=== PATIENT | male | born 1985 | race Caucasian/White ===

== ENCOUNTER 2020-12-16 16:19 | Emergency (ER) | payer OTHER, SELFPAY ==
[2020-12-16 16:27] VITALS: BP 125/113; PULSE 52; RESP 16; TEMP 37.1; O2SAT 98
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
[2020-12-16 16:42] VITALS: BP 150/90; PULSE 59; O2SAT 97
[2020-12-16 16:43] VITALS: O2SAT 98
[2020-12-16 16:46] VITALS: BP 139/84; PULSE 61; O2SAT 98
[2020-12-16 16:50] VITALS: O2SAT 99
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
--- NOTE | 2020-12-16 17:30 | DI.VRAD_ITS ---
PROCEDURE INFORMATION: Exam: XR Right Shoulder Exam date and time: 12/16/2020 4:49 PM Age: 35 years old Clinical indication: Injury or trauma; Fall; Blunt trauma (contusions or hematomas); Shoulder; Right TECHNIQUE: Imaging protocol: XR Right shoulder. Views: 2 or more views. COMPARISON: No relevant prior studies available. FINDINGS: Bones/joints: There is about 16 mm of superior displacement of the distal clavicle at the AC joint. CC interval is 2 cm. No fracture identified. Glenohumeral articulation appears normal. Soft tissues: Unremarkable IMPRESSION: AC dislocation as above Dictated and Authenticated by: Eric Gross MD. Ordering:VENKAT Dunn MD
[2020-12-16 17:36] VITALS: BP 110/65; PULSE 71
== END 2020-12-16 17:58 | disposition home or self-care (01) ==
PROVIDERS: Emergency Provider Physician Assistant
DX: S43.101A Unspecified dislocation of right acromioclavicular joint, initial encounter (principal); V19.9XXA Pedal cyclist (driver) (passenger) injured in unspecified traffic accident, initial encounter
CPT/HCPCS: 99283; 73030